=== PATIENT | male | born 1955 | race Two or more races ===

== ENCOUNTER 2021-11-17 11:58 | Inpatient (IN) | payer OTHER ==
[2021-11-17] MEDS ORDERED: MAGNESIUM HYDROX 2400MG/30ML ORAL SUSPENSION 30 ML CUP PO PRN (12:26)
[2021-11-17] MEDS ORDERED: IBUPROFEN 400 MG TABLET (FP) PO PRN (12:26)
[2021-11-17] MEDS ORDERED: guaiFENesin 200 MG/10 ML 10 ML UNIT-DOSE CUPS PO PRN (12:26)
[2021-11-17] MEDS ORDERED: MAGNESIUM CITRATE 300 ML BOTTLE PO PRN (12:26)
[2021-11-17] MEDS ORDERED: P-EPHED 60MG/TRIPROLIDI 2.5MG TABLET PO PRN (12:26)
[2021-11-17 12:35] VITALS: BMI 26.6
[2021-11-17 16:17] LABS: HEMATOCRIT 41.4 % (35.4-49); HEMOGLOBIN 13.6 GM/dL (11.7-16.9); MCH 27.9 pg (25.7-33.7); MCHC 32.9 g/dl (32.0-35.9); MEAN CELL VOLUME 84.7 fl (80-96); MEAN PLT VOLUME 8.1 fl (7.5-11.1); PLATELET COUNT 396 10^3/uL (134-434); RBC 4.89 M/mm3 (4.00-5.60); RDW 14.2 % (11.9-15.9); WHITE BLOOD COUNT 9.3 K/mm3 (4.0-10.0)
[2021-11-17 16:36] LABS: ALBUMIN 3.4 g/dl (3.4-5.0)
[2021-11-17] MEDS ORDERED: TUBERCULIN PPD 5 TU/0.1ML VIAL ID ONE ×2 (16:36→22:06)
[2021-11-17 16:38] LABS: BLOOD UREA NITROGEN 24.8 mg/dL (7-18)
[2021-11-17 16:39] LABS: CREATININE 1.3 mg/dL (0.55-1.3)
[2021-11-17 16:40] LABS: BILIRUBIN,TOTAL 0.2 mg/dL (0.2-1); TOT PROT 6.9 g/dl (6.4-8.2)
[2021-11-17] MEDS: PRENATAL VITAMINS W/ FOLIC ACID TABLET (FP) PO SCH (16:43)
[2021-11-17] MEDS: NICOTINE 7 MG/24 HOURS TOPICAL PATCH TD SCH (16:43)
[2021-11-17 17:03] LABS: SYPHILIS W/ RPR CONF NON-REACTIVE (NONREACTIVE)
[2021-11-17] MEDS: MAG HYDROX/AL HYDROX/SIMETH 30 ML UNIT-DOSE CUP PO PRN (18:43)
[2021-11-17] MEDS: THIAMINE HCL 100 MG TABLET (FP) PO SCH (21:27)
[2021-11-17] MEDS: MELATONIN 5 MG TABLETS PO SCH (21:27)
[2021-11-18] MEDS: PRENATAL VITAMINS W/ FOLIC ACID TABLET (FP) PO SCH (10:03)
[2021-11-18] MEDS: NICOTINE 7 MG/24 HOURS TOPICAL PATCH TD SCH (10:04)
[2021-11-18] MEDS: ACETAMINOPHEN 325 MG TABLET (FP) PO PRN ×2 (10:05→21:22)
[2021-11-18] MEDS ORDERED: PANTOPRAZOLE 40 MG TABLET PO ONE (12:16)
[2021-11-18] MEDS: MELATONIN 5 MG TABLETS PO SCH (21:22)
[2021-11-18] MEDS: THIAMINE HCL 100 MG TABLET (FP) PO SCH (21:22)
[2021-11-19] MEDS: ACETAMINOPHEN 325 MG TABLET (FP) PO PRN (06:20)
[2021-11-19] MEDS: NICOTINE 7 MG/24 HOURS TOPICAL PATCH TD SCH (09:56)
[2021-11-19] MEDS: FAMOTIDINE 20 MG TABLET PO SCH ×2 (09:56→21:05)
[2021-11-19] MEDS: PRENATAL VITAMINS W/ FOLIC ACID TABLET (FP) PO SCH (09:56)
[2021-11-19] MEDS ORDERED: NAPROXEN 500 MG TABLET PO SCH (10:00)
[2021-11-19] MEDS ORDERED: PANTOPRAZOLE 40 MG TABLET PO SCH (10:00)
[2021-11-19] MEDS: NAPROXEN 500 MG TABLET PO PRN ×2 (15:10→21:05)
[2021-11-19] MEDS: THIAMINE HCL 100 MG TABLET (FP) PO SCH (21:05)
[2021-11-19] MEDS: MELATONIN 5 MG TABLETS PO SCH (21:05)
[2021-11-19] MEDS: LIDOCAINE PATCH REMOVAL MC SCH (21:06)
[2021-11-19] MEDS: LIDOCAINE 5% TOPICAL PATCH TP SCH (22:27)
[2021-11-20] MEDS: ACETAMINOPHEN 325 MG TABLET (FP) PO PRN ×2 (06:34→14:27)
[2021-11-20] MEDS: PRENATAL VITAMINS W/ FOLIC ACID TABLET (FP) PO SCH (09:36)
[2021-11-20] MEDS: FAMOTIDINE 20 MG TABLET PO SCH ×2 (09:36→21:07)
[2021-11-20] MEDS: NICOTINE 7 MG/24 HOURS TOPICAL PATCH TD SCH (09:36)
[2021-11-20] MEDS: LIDOCAINE 5% TOPICAL PATCH TP SCH (09:36)
[2021-11-20] MEDS: NAPROXEN 500 MG TABLET PO PRN ×2 (09:37→21:07)
[2021-11-20 12:09] LABS: URINE APPEARANCE CLEAR; URINE BILIRUBIN NEGATIVE (NEGATIVE); URINE COLOR YELLOW; URINE GLUCOSE (UA) NEGATIVE (NEGATIVE); URINE KETONE NEGATIVE (NEGATIVE); URINE LEUK ESTERASE NEGATIVE (NEGATIVE); URINE NITRITE NEGATIVE (NEGATIVE); URINE PROTEIN NEGATIVE (NEGATIVE); URINE UROBILINOGEN 0.2 mg/dL (0.2-1.0)
[2021-11-20] MEDS: MELATONIN 5 MG TABLETS PO SCH (21:07)
[2021-11-20] MEDS: THIAMINE HCL 100 MG TABLET (FP) PO SCH (21:07)
[2021-11-20] MEDS: LIDOCAINE PATCH REMOVAL MC SCH (21:08)
[2021-11-21] MEDS: NAPROXEN 500 MG TABLET PO PRN ×2 (06:17→21:28)
[2021-11-21] MEDS: ACETAMINOPHEN 325 MG TABLET (FP) PO PRN (10:04)
[2021-11-21] MEDS: FAMOTIDINE 20 MG TABLET PO SCH ×2 (10:05→21:28)
[2021-11-21] MEDS: LIDOCAINE 5% TOPICAL PATCH TP SCH (10:06)
[2021-11-21] MEDS: PRENATAL VITAMINS W/ FOLIC ACID TABLET (FP) PO SCH (10:06)
[2021-11-21] MEDS: NICOTINE 7 MG/24 HOURS TOPICAL PATCH TD SCH (10:06)
[2021-11-21] MEDS: LIDOCAINE PATCH REMOVAL MC SCH (21:28)
[2021-11-21] MEDS: THIAMINE HCL 100 MG TABLET (FP) PO SCH (21:28)
[2021-11-21] MEDS: MELATONIN 5 MG TABLETS PO SCH (21:28)
[2021-11-21] MEDS: MAG HYDROX/AL HYDROX/SIMETH 30 ML UNIT-DOSE CUP PO PRN (22:35)
[2021-11-22] MEDS: ACETAMINOPHEN 325 MG TABLET (FP) PO PRN ×2 (06:33→17:51)
[2021-11-22] MEDS: MAG HYDROX/AL HYDROX/SIMETH 30 ML UNIT-DOSE CUP PO PRN ×2 (06:33→17:51)
[2021-11-22] MEDS: LIDOCAINE 5% TOPICAL PATCH TP SCH ×2 (10:01→10:30)
[2021-11-22] MEDS: PRENATAL VITAMINS W/ FOLIC ACID TABLET (FP) PO SCH (10:02)
[2021-11-22] MEDS: NICOTINE 7 MG/24 HOURS TOPICAL PATCH TD SCH (10:02)
[2021-11-22] MEDS: NICOTINE 10 MG CARTRIDGE (INHALER) IH PRN (10:04)
[2021-11-22] MEDS: NAPROXEN 500 MG TABLET PO PRN ×2 (10:04→21:14)
[2021-11-22] MEDS: FAMOTIDINE 20 MG TABLET PO SCH ×2 (10:30→21:14)
[2021-11-22] MEDS: LIDOCAINE PATCH REMOVAL MC SCH (21:14)
[2021-11-22] MEDS: THIAMINE HCL 100 MG TABLET (FP) PO SCH (21:14)
[2021-11-22] MEDS: MELATONIN 5 MG TABLETS PO SCH (21:14)
[2021-11-23] MEDS: NAPROXEN 500 MG TABLET PO PRN ×2 (06:54→21:08)
[2021-11-23] MEDS: LOPERAMIDE HCL 2 MG CAPSULE PO PRN ×2 (06:54→12:23)
[2021-11-23] MEDS: NICOTINE 7 MG/24 HOURS TOPICAL PATCH TD SCH (10:07)
[2021-11-23] MEDS: PRENATAL VITAMINS W/ FOLIC ACID TABLET (FP) PO SCH (10:07)
[2021-11-23] MEDS: FAMOTIDINE 20 MG TABLET PO SCH ×2 (10:07→21:06)
[2021-11-23] MEDS: LIDOCAINE 5% TOPICAL PATCH TP SCH ×2 (10:07→12:19)
[2021-11-23] MEDS: ACETAMINOPHEN 325 MG TABLET (FP) PO PRN (10:08)
[2021-11-23] MEDS: MAG HYDROX/AL HYDROX/SIMETH 30 ML UNIT-DOSE CUP PO PRN (10:11)
[2021-11-23] MEDS: METHYL SALICYLATE/MENTHOL OINT 30 GM TUBE TP SCH ×2 (12:39→21:07)
[2021-11-23] MEDS: THIAMINE HCL 100 MG TABLET (FP) PO SCH (21:07)
[2021-11-23] MEDS: MELATONIN 5 MG TABLETS PO SCH (21:07)
[2021-11-23] MEDS: LIDOCAINE PATCH REMOVAL MC SCH ×2 (21:07)
[2021-11-24] MEDS: NAPROXEN 500 MG TABLET PO PRN ×2 (06:43→17:13)
[2021-11-24] MEDS: hydrOXYzine PAMOATE 25 MG CAPSULE (FP) PO PRN ×2 (06:43→21:41)
[2021-11-24] MEDS: LIDOCAINE 5% TOPICAL PATCH TP SCH ×2 (09:42)
[2021-11-24] MEDS: METHYL SALICYLATE/MENTHOL OINT 30 GM TUBE TP SCH ×2 (09:42→21:44)
[2021-11-24] MEDS: NICOTINE 7 MG/24 HOURS TOPICAL PATCH TD SCH (09:43)
[2021-11-24] MEDS: FAMOTIDINE 20 MG TABLET PO SCH ×2 (09:43→21:41)
[2021-11-24] MEDS: PRENATAL VITAMINS W/ FOLIC ACID TABLET (FP) PO SCH (09:43)
[2021-11-24] MEDS: ACETAMINOPHEN 325 MG TABLET (FP) PO PRN ×2 (09:44→21:41)
[2021-11-24] MEDS: MAG HYDROX/AL HYDROX/SIMETH 30 ML UNIT-DOSE CUP PO PRN (17:12)
[2021-11-24] MEDS: LIDOCAINE PATCH REMOVAL MC SCH ×2 (21:42)
[2021-11-24] MEDS: MELATONIN 5 MG TABLETS PO SCH (21:42)
[2021-11-24] MEDS: THIAMINE HCL 100 MG TABLET (FP) PO SCH (21:45)
[2021-11-25] MEDS: hydrOXYzine PAMOATE 25 MG CAPSULE (FP) PO PRN (06:26)
[2021-11-25] MEDS: NAPROXEN 500 MG TABLET PO PRN ×2 (06:26→21:12)
[2021-11-25] MEDS: LIDOCAINE 5% TOPICAL PATCH TP SCH ×2 (10:09→10:10)
[2021-11-25] MEDS: METHYL SALICYLATE/MENTHOL OINT 30 GM TUBE TP SCH ×2 (10:09→21:13)
[2021-11-25] MEDS: FAMOTIDINE 20 MG TABLET PO SCH ×2 (10:10→21:12)
[2021-11-25] MEDS: PRENATAL VITAMINS W/ FOLIC ACID TABLET (FP) PO SCH (10:11)
[2021-11-25] MEDS: OMEPRAZOLE 40 MG PO SCH (10:11)
[2021-11-25] MEDS: NICOTINE 7 MG/24 HOURS TOPICAL PATCH TD SCH (10:12)
[2021-11-25] MEDS: ACETAMINOPHEN 325 MG TABLET (FP) PO PRN (10:12)
[2021-11-25] MEDS: THIAMINE HCL 100 MG TABLET (FP) PO SCH (21:12)
[2021-11-25] MEDS: MELATONIN 5 MG TABLETS PO SCH (21:12)
[2021-11-25] MEDS: LIDOCAINE PATCH REMOVAL MC SCH ×2 (21:13)
[2021-11-26] MEDS: hydrOXYzine PAMOATE 25 MG CAPSULE (FP) PO PRN ×2 (06:37→21:29)
[2021-11-26] MEDS: NAPROXEN 500 MG TABLET PO PRN ×2 (06:37→21:29)
[2021-11-26] MEDS: PRENATAL VITAMINS W/ FOLIC ACID TABLET (FP) PO SCH (09:50)
[2021-11-26] MEDS: OMEPRAZOLE 40 MG PO SCH (09:50)
[2021-11-26] MEDS: FAMOTIDINE 20 MG TABLET PO SCH ×2 (09:50→21:29)
[2021-11-26] MEDS: NICOTINE 10 MG CARTRIDGE (INHALER) IH PRN (09:52)
[2021-11-26] MEDS: LIDOCAINE 5% TOPICAL PATCH TP SCH ×2 (09:53→09:54)
[2021-11-26] MEDS: ACETAMINOPHEN 325 MG TABLET (FP) PO PRN ×2 (09:53→14:17)
[2021-11-26] MEDS: NICOTINE 7 MG/24 HOURS TOPICAL PATCH TD SCH (09:54)
[2021-11-26] MEDS: METHYL SALICYLATE/MENTHOL OINT 30 GM TUBE TP SCH ×2 (09:54→21:30)
[2021-11-26] MEDS: MELATONIN 5 MG TABLETS PO SCH (21:29)
[2021-11-26] MEDS: THIAMINE HCL 100 MG TABLET (FP) PO SCH (21:29)
[2021-11-26] MEDS: LIDOCAINE PATCH REMOVAL MC SCH ×2 (21:30)
[2021-11-27] MEDS: ACETAMINOPHEN 325 MG TABLET (FP) PO PRN (06:31)
[2021-11-27] MEDS: LIDOCAINE 5% TOPICAL PATCH TP SCH ×2 (10:10)
[2021-11-27] MEDS: FAMOTIDINE 20 MG TABLET PO SCH ×2 (10:11→21:48)
[2021-11-27] MEDS: NICOTINE 7 MG/24 HOURS TOPICAL PATCH TD SCH (10:11)
[2021-11-27] MEDS: PRENATAL VITAMINS W/ FOLIC ACID TABLET (FP) PO SCH (10:11)
[2021-11-27] MEDS: OMEPRAZOLE 40 MG PO SCH (10:11)
[2021-11-27] MEDS: METHYL SALICYLATE/MENTHOL OINT 30 GM TUBE TP SCH ×2 (10:16→21:49)
[2021-11-27] MEDS: NAPROXEN 500 MG TABLET PO PRN ×2 (10:16→21:47)
[2021-11-27] MEDS: amLODIPine BESYLATE 5 MG TABLET (FP) PO SCH (11:19)
[2021-11-27] MEDS: MELATONIN 5 MG TABLETS PO SCH (21:48)
[2021-11-27] MEDS: LIDOCAINE PATCH REMOVAL MC SCH ×2 (21:48)
[2021-11-27] MEDS: hydrOXYzine PAMOATE 25 MG CAPSULE (FP) PO PRN (21:48)
[2021-11-27] MEDS: THIAMINE HCL 100 MG TABLET (FP) PO SCH (21:48)
[2021-11-28] MEDS: ACETAMINOPHEN 325 MG TABLET (FP) PO PRN (07:55)
[2021-11-28] MEDS: OMEPRAZOLE 40 MG PO SCH (11:01)
[2021-11-28] MEDS: LIDOCAINE 5% TOPICAL PATCH TP SCH ×2 (11:02→11:03)
[2021-11-28] MEDS: amLODIPine BESYLATE 5 MG TABLET (FP) PO SCH (11:02)
[2021-11-28] MEDS: PRENATAL VITAMINS W/ FOLIC ACID TABLET (FP) PO SCH (11:02)
[2021-11-28] MEDS: NICOTINE 7 MG/24 HOURS TOPICAL PATCH TD SCH (11:02)
[2021-11-28] MEDS: METHYL SALICYLATE/MENTHOL OINT 30 GM TUBE TP SCH ×2 (11:02→21:59)
[2021-11-28] MEDS: FAMOTIDINE 20 MG TABLET PO SCH ×2 (11:02→21:58)
[2021-11-28] MEDS: NAPROXEN 500 MG TABLET PO PRN ×2 (11:06→21:58)
[2021-11-28] MEDS: THIAMINE HCL 100 MG TABLET (FP) PO SCH (21:58)
[2021-11-28] MEDS: MELATONIN 5 MG TABLETS PO SCH (21:58)
[2021-11-28] MEDS: LIDOCAINE PATCH REMOVAL MC SCH ×2 (21:59→22:00)
[2021-11-29] MEDS: ACETAMINOPHEN 325 MG TABLET (FP) PO PRN ×3 (06:44→21:34)
[2021-11-29 08:11] VITALS: TEMP 97
[2021-11-29] MEDS: METHYL SALICYLATE/MENTHOL OINT 30 GM TUBE TP SCH ×2 (09:39→21:34)
[2021-11-29] MEDS: LIDOCAINE 5% TOPICAL PATCH TP SCH ×2 (09:40)
[2021-11-29] MEDS: NICOTINE 7 MG/24 HOURS TOPICAL PATCH TD SCH (09:40)
[2021-11-29] MEDS: OMEPRAZOLE 40 MG PO SCH (09:40)
[2021-11-29] MEDS: PRENATAL VITAMINS W/ FOLIC ACID TABLET (FP) PO SCH (09:40)
[2021-11-29] MEDS: FAMOTIDINE 20 MG TABLET PO SCH ×2 (09:41→21:34)
[2021-11-29] MEDS: NAPROXEN 500 MG TABLET PO PRN ×2 (09:41→18:39)
[2021-11-29] MEDS: amLODIPine BESYLATE 5 MG TABLET (FP) PO SCH (09:41)
[2021-11-29] MEDS: THIAMINE HCL 100 MG TABLET (FP) PO SCH (21:33)
[2021-11-29] MEDS: MELATONIN 5 MG TABLETS PO SCH (21:33)
[2021-11-29] MEDS: LIDOCAINE PATCH REMOVAL MC SCH ×2 (21:34)
[2021-11-30] MEDS: NAPROXEN 500 MG TABLET PO PRN (08:23)
[2021-11-30] MEDS: amLODIPine BESYLATE 5 MG TABLET (FP) PO SCH (10:11)
[2021-11-30] MEDS: LIDOCAINE 5% TOPICAL PATCH TP SCH ×2 (10:11)
[2021-11-30] MEDS: OMEPRAZOLE 40 MG PO SCH (10:12)
[2021-11-30] MEDS: PRENATAL VITAMINS W/ FOLIC ACID TABLET (FP) PO SCH (10:12)
[2021-11-30] MEDS: FAMOTIDINE 20 MG TABLET PO SCH (10:12)
[2021-11-30] MEDS: NICOTINE 7 MG/24 HOURS TOPICAL PATCH TD SCH (10:15)
[2021-11-30] MEDS: METHYL SALICYLATE/MENTHOL OINT 30 GM TUBE TP SCH (10:15)
[2021-11-30 10:19] VITALS: BP 118/81; PULSE 87; RESP 16
== END 2021-11-30 11:55 | disposition home or self-care (01) | DRG 895 ==
LOC: YASAS 11:58 → Y3E 15:57
PROVIDERS: ADMIT Allergy & Immunology; ATTEND Family Medicine
PROC: HZ42ZZZ Group Counseling for Substance Abuse Treatment, Cognitive-Behavioral (ICD-10-PCS; principal; 2021-11-17)
DX: F10.20 Alcohol dependence, uncomplicated (principal); F14.20 Cocaine dependence, uncomplicated; F17.210 Nicotine dependence, cigarettes, uncomplicated; F41.9 Anxiety disorder, unspecified; G47.00 Insomnia, unspecified; K21.9 Gastro-esophageal reflux disease without esophagitis; M17.0 Bilateral primary osteoarthritis of knee; R03.0 Elevated blood-pressure reading, without diagnosis of hypertension; R94.31 Abnormal electrocardiogram [ECG] [EKG]; Z28.310 Unvaccinated for COVID-19; Z99.89 Dependence on other enabling machines and devices
CPT/HCPCS: 36415; 73030-TC-LT-FY; 80053; 81003; 85027; 86780; 86803; 93005; 93010; C9803-CS; U0003; U0005

== ENCOUNTER 2021-11-18 00:05 | Emergency (ER) | payer OTHER ==
[2021-11-18 00:27] VITALS: BP 119/73; PULSE 71; RESP 20; TEMP 98.4; BMI 24.2
== END 2021-11-18 03:18 ==
LOC: JER 00:05
DX: I45.10 Unspecified right bundle-branch block (principal)
CPT/HCPCS: 93005; 93010; 99283-25

== ENCOUNTER 2022-01-18 12:39 | Inpatient (IN) | payer OTHER ==
[2022-01-18 15:41] VITALS: BMI 18.3
[2022-01-18] MEDS ORDERED: NICOTINE 10 MG CARTRIDGE (INHALER) IH PRN (16:36)
[2022-01-18] MEDS ORDERED: MAGNESIUM CITRATE 300 ML BOTTLE PO PRN (16:36)
[2022-01-18] MEDS ORDERED: hydrOXYzine PAMOATE 25 MG CAPSULE (FP) PO PRN (16:36)
[2022-01-18] MEDS ORDERED: LOPERAMIDE HCL 2 MG CAPSULE PO PRN (16:36)
[2022-01-18] MEDS ORDERED: MAG HYDROX/AL HYDROX/SIMETH 30 ML UNIT-DOSE CUP PO PRN (16:36)
[2022-01-18] MEDS ORDERED: MAGNESIUM HYDROX 2400MG/30ML ORAL SUSPENSION 30 ML CUP PO PRN (16:36)
[2022-01-18] MEDS ORDERED: IBUPROFEN 400 MG TABLET (FP) PO PRN (16:36)
[2022-01-18] MEDS ORDERED: P-EPHED 60MG/TRIPROLIDI 2.5MG TABLET PO PRN (16:36)
[2022-01-18] MEDS ORDERED: guaiFENesin 200 MG/10 ML 10 ML UNIT-DOSE CUPS PO PRN (16:36)
[2022-01-18] MEDS: ACETAMINOPHEN 325 MG TABLET (FP) PO PRN (17:11)
[2022-01-18] MEDS: THIAMINE HCL 100 MG TABLET (FP) PO SCH (21:46)
[2022-01-18] MEDS: MELATONIN 5 MG TABLETS PO SCH (21:46)
[2022-01-19] MEDS: ACETAMINOPHEN 325 MG TABLET (FP) PO PRN ×2 (06:40→14:23)
[2022-01-19] MEDS: PRENATAL VITAMINS W/ FOLIC ACID TABLET (FP) PO SCH (10:09)
[2022-01-19] MEDS: NICOTINE 7 MG/24 HOURS TOPICAL PATCH TD SCH (10:09)
[2022-01-19] MEDS ORDERED: BACLOFEN 10 MG TABLET (FP) PO PRN (13:04)
[2022-01-19] MEDS: amLODIPine BESYLATE 5 MG TABLET (FP) PO SCH (14:22)
[2022-01-19 15:06] LABS: HEMATOCRIT 44.6 % (35.4-49); HEMOGLOBIN 14.2 GM/dL (11.7-16.9); MCH 27.8 pg (25.7-33.7); MCHC 31.8 g/dl (32.0-35.9); MEAN CELL VOLUME 87.6 fl (80-96); MEAN PLT VOLUME 8.4 fl (7.5-11.1); PLATELET COUNT 443 10^3/uL (134-434); RDW 16.6 % (11.9-15.9); WHITE BLOOD COUNT 7.9 K/mm3 (4.0-10.0)
[2022-01-19 15:10] LABS: ALBUMIN 3.3 g/dl (3.4-5.0); BLOOD UREA NITROGEN 17.8 mg/dL (7-18); CALCIUM 9.5 mg/dL (8.5-10.1)
[2022-01-19 15:13] LABS: CREATININE 0.9 mg/dL (0.55-1.3)
[2022-01-19 15:15] LABS: BILIRUBIN,TOTAL 0.3 mg/dL (0.2-1); TOT PROT 6.8 g/dl (6.4-8.2)
[2022-01-19 16:41] LABS: URINE APPEARANCE CLEAR; URINE BILIRUBIN NEGATIVE (NEGATIVE); URINE COLOR YELLOW; URINE GLUCOSE (UA) NEGATIVE (NEGATIVE); URINE KETONE TRACE (NEGATIVE); URINE LEUK ESTERASE NEGATIVE (NEGATIVE); URINE NITRITE NEGATIVE (NEGATIVE); URINE PROTEIN NEGATIVE (NEGATIVE)
[2022-01-19] MEDS: THIAMINE HCL 100 MG TABLET (FP) PO SCH (21:53)
[2022-01-19] MEDS: NAPROXEN 500 MG TABLET PO SCH (21:53)
[2022-01-19] MEDS: MELATONIN 5 MG TABLETS PO SCH (21:53)
[2022-01-20] MEDS: ACETAMINOPHEN 325 MG TABLET (FP) PO PRN (07:15)
[2022-01-20] MEDS: NAPROXEN 500 MG TABLET PO SCH ×2 (09:00→21:57)
[2022-01-20] MEDS: PRENATAL VITAMINS W/ FOLIC ACID TABLET (FP) PO SCH (09:01)
[2022-01-20] MEDS: amLODIPine BESYLATE 5 MG TABLET (FP) PO SCH (09:01)
[2022-01-20] MEDS: NICOTINE 7 MG/24 HOURS TOPICAL PATCH TD SCH (09:01)
[2022-01-20] MEDS: PANTOPRAZOLE 40 MG TABLET PO SCH (09:01)
[2022-01-20] MEDS ORDERED: ONDANSETRON *ODT* 4 MG TABLET SL PRN (11:31)
[2022-01-20] MEDS: METHOCARBAMOL 500 MG TABLET PO SCH ×2 (12:06→21:56)
[2022-01-20] MEDS ORDERED: cloNIDine HCL 0.1 MG TABLET PO PRN (16:19)
[2022-01-20] MEDS ORDERED: TRIMETHOBENZAMIDE HCL 200MG/2ML INJ IM ONE (20:54)
[2022-01-20] MEDS: MELATONIN 5 MG TABLETS PO SCH (21:57)
[2022-01-20] MEDS: THIAMINE HCL 100 MG TABLET (FP) PO SCH (21:57)
[2022-01-21] MEDS: ACETAMINOPHEN 325 MG TABLET (FP) PO PRN (06:55)
[2022-01-21 08:09] VITALS: PULSE 81
[2022-01-21 09:23] VITALS: BP 95/66; RESP 15; TEMP 98
[2022-01-21] MEDS: NAPROXEN 500 MG TABLET PO SCH (09:46)
[2022-01-21] MEDS: PRENATAL VITAMINS W/ FOLIC ACID TABLET (FP) PO SCH (09:46)
[2022-01-21] MEDS: PANTOPRAZOLE 40 MG TABLET PO SCH (09:46)
[2022-01-21] MEDS: METHOCARBAMOL 500 MG TABLET PO SCH (09:46)
[2022-01-21] MEDS: NICOTINE 7 MG/24 HOURS TOPICAL PATCH TD SCH (09:47)
[2022-01-21] MEDS: amLODIPine BESYLATE 5 MG TABLET (FP) PO SCH (09:47)
== END 2022-01-21 17:00 | disposition short-term general hospital (02) | DRG 895 ==
LOC: YASAS 12:39 → Y3E 18:16
PROVIDERS: ADMIT Allergy & Immunology; ATTEND Psychiatry & Neurology Pain Medicine
PROC: HZ42ZZZ Group Counseling for Substance Abuse Treatment, Cognitive-Behavioral (ICD-10-PCS; principal; 2022-01-18)
DX: F14.20 Cocaine dependence, uncomplicated (principal); Z68.1 Body mass index [BMI] 19.9 or less, adult; F17.210 Nicotine dependence, cigarettes, uncomplicated; F41.9 Anxiety disorder, unspecified; G47.00 Insomnia, unspecified; K21.9 Gastro-esophageal reflux disease without esophagitis; M17.0 Bilateral primary osteoarthritis of knee; R11.11 Vomiting without nausea; R94.31 Abnormal electrocardiogram [ECG] [EKG]; R63.4 Abnormal weight loss
CPT/HCPCS: 36415; 80053; 81003; 85027; 86780; 93005; 93010; C9803-CS; J0475; Q0162; U0003; U0005

== ENCOUNTER 2022-01-21 10:54 | Emergency (ER) | payer OTHER ==
[2022-01-21 11:16] VITALS: BP 111/69; PULSE 85; RESP 18; TEMP 99.2; BMI 19.0
[2022-01-21] MEDS ORDERED: MAG HYDROX/AL HYDROX/SIMETH 30 ML UNIT-DOSE CUP PO ONE (12:33)
[2022-01-21 12:59] LABS: BASO % 0.8 % (0-2.0); EOS % 2.2 % (0-4.5); HEMATOCRIT 41.6 % (35.4-49); HEMOGLOBIN 13.5 GM/dL (11.7-16.9); LYMPH % 32.6 % (8-40); MCH 27.8 pg (25.7-33.7); MCHC 32.5 g/dl (32.0-35.9); MEAN CELL VOLUME 85.6 fl (80-96); MEAN PLT VOLUME 7.3 fl (7.5-11.1); MONO % 13.7 % (3.8-10.2); NEUT % 50.7 % (42.8-82.8); PLATELET COUNT 456 10^3/uL (134-434); RBC 4.86 M/mm3 (4.00-5.60); RDW 15.9 % (11.9-15.9); WHITE BLOOD COUNT 11.3 K/mm3 (4.0-10.0)
[2022-01-21] MEDS ORDERED: MAG HYDROX/AL HYDROX/SIMETH 30 ML UNIT-DOSE CUP ONE (13:10)
[2022-01-21 13:26] LABS: ALBUMIN 3.6 g/dl (3.4-5.0); CALCIUM 9.3 mg/dL (8.5-10.1)
[2022-01-21 13:30] LABS: CREATININE 1.3 mg/dL (0.55-1.3)
[2022-01-21 13:32] LABS: BILIRUBIN,TOTAL 0.5 mg/dL (0.2-1); TOT PROT 6.7 g/dl (6.4-8.2)
== END 2022-01-21 18:37 | disposition left against medical advice (07) ==
LOC: JER 10:54
DX: R07.89 Other chest pain (principal); R11.2 Nausea with vomiting, unspecified
CPT/HCPCS: 36415; 71045-TC-FY; 71260-TC; 74177-TC; 80053; 84484; 85025; 93005; 93010; 99285-25; Q9967

== ENCOUNTER 2022-05-31 11:59 | Inpatient (IN) | payer OTHER ==
[2022-05-31 12:40] VITALS: BMI 17.4
[2022-05-31] MEDS ORDERED: guaiFENesin 200 MG/10 ML 10 ML UNIT-DOSE CUPS PO PRN (13:08)
[2022-05-31] MEDS ORDERED: hydrOXYzine PAMOATE 25 MG CAPSULE (FP) PO PRN (13:08)
[2022-05-31] MEDS ORDERED: LOPERAMIDE HCL 2 MG CAPSULE PO PRN (13:08)
[2022-05-31] MEDS ORDERED: P-EPHED 60MG/TRIPROLIDI 2.5MG TABLET PO PRN (13:08)
[2022-05-31] MEDS ORDERED: POLYETHYLENE GLYCOL (HEALTHYLAX) 3350 17 GM PACKET PO PRN (13:08)
[2022-05-31] MEDS ORDERED: MAG HYDROX/AL HYDROX/SIMETH 30 ML UNIT-DOSE CUP PO PRN (13:08)
[2022-05-31] MEDS ORDERED: BENZOCAINE/MENTHOL (CHLORASEPTIC ) LOZENGE MM PRN (13:08)
[2022-05-31] MEDS ORDERED: MAGNESIUM HYDROX 2400MG/30ML ORAL SUSPENSION 30 ML CUP PO PRN (13:08)
[2022-05-31] MEDS: NAPROXEN 500 MG TABLET PO SCH ×2 (16:15→21:20)
[2022-05-31] MEDS: PANTOPRAZOLE 40 MG TABLET PO SCH (16:54)
[2022-05-31] MEDS: MELATONIN 5 MG TABLETS PO PRN (21:20)
[2022-05-31] MEDS: THIAMINE HCL 100 MG TABLET (FP) PO SCH (21:20)
[2022-05-31 23:51] LABS: URINE APPEARANCE CLEAR; URINE BILIRUBIN NEGATIVE (NEGATIVE); URINE COLOR YELLOW; URINE GLUCOSE (UA) NEGATIVE (NEGATIVE); URINE KETONE TRACE (NEGATIVE); URINE LEUK ESTERASE NEGATIVE (NEGATIVE); URINE NITRITE NEGATIVE (NEGATIVE); URINE PROTEIN TRACE (NEGATIVE); URINE UROBILINOGEN 0.2 mg/dL (0.2-1.0)
[2022-06-01] MEDS: ACETAMINOPHEN 325 MG TABLET (FP) PO PRN (06:23)
[2022-06-01] MEDS: NAPROXEN 500 MG TABLET PO SCH ×2 (09:35→21:05)
[2022-06-01] MEDS: PRENATAL VITAMINS W/ FOLIC ACID TABLET (FP) PO SCH (09:35)
[2022-06-01] MEDS: PANTOPRAZOLE 40 MG TABLET PO SCH (09:35)
[2022-06-01 12:33] LABS: HEMATOCRIT 43.2 % (35.4-49); MCH 27.7 pg (25.7-33.7); MCHC 32.3 g/dl (32.0-35.9); MEAN CELL VOLUME 85.8 fl (80-96); MEAN PLT VOLUME 7.7 fl (7.5-11.1); PLATELET COUNT 428 10^3/uL (134-434); RBC 5.03 M/mm3 (4.00-5.60); RDW 15.7 % (11.9-15.9); WHITE BLOOD COUNT 9.1 K/mm3 (4.0-10.0)
[2022-06-01 12:49] LABS: ALBUMIN 3.3 g/dl (3.4-5.0); BLOOD UREA NITROGEN 20.6 mg/dL (7-18); CALCIUM 8.9 mg/dL (8.5-10.1)
[2022-06-01 12:53] LABS: TOT PROT 6.4 g/dl (6.4-8.2)
[2022-06-01 12:55] LABS: BILIRUBIN,TOTAL 0.3 mg/dL (0.2-1)
[2022-06-01] MEDS: THIAMINE HCL 100 MG TABLET (FP) PO SCH (21:04)
[2022-06-01] MEDS: MELATONIN 5 MG TABLETS PO PRN (21:05)
[2022-06-02] MEDS: ACETAMINOPHEN 325 MG TABLET (FP) PO PRN (06:41)
[2022-06-02] MEDS: NAPROXEN 500 MG TABLET PO SCH ×2 (10:09→21:14)
[2022-06-02] MEDS: PANTOPRAZOLE 40 MG TABLET PO SCH (10:10)
[2022-06-02] MEDS: PRENATAL VITAMINS W/ FOLIC ACID TABLET (FP) PO SCH (10:10)
[2022-06-02] MEDS: THIAMINE HCL 100 MG TABLET (FP) PO SCH (21:14)
[2022-06-02] MEDS: MELATONIN 5 MG TABLETS PO PRN (21:14)
[2022-06-03] MEDS: ACETAMINOPHEN 325 MG TABLET (FP) PO PRN (06:28)
[2022-06-03 06:39] VITALS: BP 120/74; PULSE 64; RESP 18; TEMP 98.3
== END 2022-06-03 08:54 | disposition home or self-care (01) | DRG 895 ==
LOC: YASAS 11:59 → Y3E 16:20
PROVIDERS: ADMIT Allergy & Immunology; ATTEND Allergy & Immunology
PROC: HZ42ZZZ Group Counseling for Substance Abuse Treatment, Cognitive-Behavioral (ICD-10-PCS; principal; 2022-05-31)
DX: F14.20 Cocaine dependence, uncomplicated (principal); F17.210 Nicotine dependence, cigarettes, uncomplicated; F41.9 Anxiety disorder, unspecified; G47.00 Insomnia, unspecified; K21.9 Gastro-esophageal reflux disease without esophagitis; M15.9 Polyosteoarthritis, unspecified; Z99.89 Dependence on other enabling machines and devices
CPT/HCPCS: 36415; 80053; 81003; 82962; 85027; 86780; 87811; C9803-CS; U0003; U0005

== ENCOUNTER 2022-06-23 11:34 | Inpatient (IN) | payer OTHER ==
[2022-06-23] MEDS ORDERED: BENZOCAINE/MENTHOL (CHLORASEPTIC ) LOZENGE MM PRN (14:47)
[2022-06-23] MEDS ORDERED: P-EPHED 60MG/TRIPROLIDI 2.5MG TABLET PO PRN (14:47)
[2022-06-23] MEDS ORDERED: guaiFENesin 200 MG/10 ML 10 ML UNIT-DOSE CUPS PO PRN (14:47)
[2022-06-23] MEDS ORDERED: MAGNESIUM HYDROX 2400MG/30ML ORAL SUSPENSION 30 ML CUP PO PRN (14:47)
[2022-06-23] MEDS ORDERED: NICOTINE 10 MG CARTRIDGE (INHALER) IH PRN (14:47)
[2022-06-23] MEDS ORDERED: IBUPROFEN 400 MG TABLET (FP) PO PRN (14:47)
[2022-06-23] MEDS ORDERED: POLYETHYLENE GLYCOL (HEALTHYLAX) 3350 17 GM PACKET PO PRN (14:47)
[2022-06-23] MEDS ORDERED: hydrOXYzine PAMOATE 25 MG CAPSULE (FP) PO PRN (14:47)
[2022-06-23] MEDS: PRENATAL VITAMINS W/ FOLIC ACID TABLET (FP) PO SCH (16:27)
[2022-06-23] MEDS: MAG HYDROX/AL HYDROX/SIMETH 30 ML UNIT-DOSE CUP PO PRN (16:28)
[2022-06-23] MEDS: ACETAMINOPHEN 325 MG TABLET (FP) PO PRN (16:29)
[2022-06-23 16:34] VITALS: BMI 17.4
[2022-06-23] MEDS: MELATONIN 5 MG TABLETS PO SCH (21:40)
[2022-06-23] MEDS: THIAMINE HCL 100 MG TABLET (FP) PO SCH (21:40)
[2022-06-23] MEDS: NAPROXEN 500 MG TABLET PO SCH (21:40)
[2022-06-24] MEDS: ACETAMINOPHEN 325 MG TABLET (FP) PO PRN (06:53)
[2022-06-24] MEDS: NAPROXEN 500 MG TABLET PO SCH ×2 (10:27→22:05)
[2022-06-24] MEDS: amLODIPine BESYLATE 5 MG TABLET (FP) PO SCH (10:27)
[2022-06-24] MEDS: PANTOPRAZOLE 40 MG TABLET PO SCH (10:27)
[2022-06-24] MEDS: LOPERAMIDE HCL 2 MG CAPSULE PO PRN ×3 (10:28→17:20)
[2022-06-24] MEDS: PRENATAL VITAMINS W/ FOLIC ACID TABLET (FP) PO SCH (10:28)
[2022-06-24 12:15] LABS: HEMATOCRIT 44.1 % (35.4-49); HEMOGLOBIN 14.5 GM/dL (11.7-16.9); MCH 28.3 pg (25.7-33.7); MCHC 32.8 g/dl (32.0-35.9); MEAN CELL VOLUME 86.4 fl (80-96); MEAN PLT VOLUME 7.9 fl (7.5-11.1); PLATELET COUNT 457 10^3/uL (134-434); RDW 16.1 % (11.9-15.9); WHITE BLOOD COUNT 10.7 K/mm3 (4.0-10.0)
[2022-06-24 12:17] LABS: CALCIUM 9.3 mg/dL (8.5-10.1)
[2022-06-24 12:18] LABS: ALBUMIN 3.6 g/dl (3.4-5.0); BLOOD UREA NITROGEN 23.7 mg/dL (7-18)
[2022-06-24 12:22] LABS: BILIRUBIN,TOTAL 0.3 mg/dL (0.2-1); TOT PROT 7.2 g/dl (6.4-8.2)
[2022-06-24 12:43] LABS: SYPHILIS W/ RPR CONF NON-REACTIVE (NONREACTIVE)
[2022-06-24] MEDS: THIAMINE HCL 100 MG TABLET (FP) PO SCH (22:05)
[2022-06-24] MEDS: MELATONIN 5 MG TABLETS PO SCH (22:05)
[2022-06-24] MEDS ORDERED: TRIMETHOBENZAMIDE HCL 200MG/2ML INJ IM ONE (22:56)
[2022-06-25] MEDS: ACETAMINOPHEN 325 MG TABLET (FP) PO PRN (06:42)
[2022-06-25] MEDS: PANTOPRAZOLE 40 MG TABLET PO SCH (09:43)
[2022-06-25] MEDS: NAPROXEN 500 MG TABLET PO SCH ×2 (09:43→21:57)
[2022-06-25] MEDS: amLODIPine BESYLATE 5 MG TABLET (FP) PO SCH (09:43)
[2022-06-25] MEDS: PRENATAL VITAMINS W/ FOLIC ACID TABLET (FP) PO SCH (09:43)
[2022-06-25] MEDS: MELATONIN 5 MG TABLETS PO SCH (21:57)
[2022-06-25] MEDS: THIAMINE HCL 100 MG TABLET (FP) PO SCH (21:57)
[2022-06-25] MEDS: MAG HYDROX/AL HYDROX/SIMETH 30 ML UNIT-DOSE CUP PO PRN (21:58)
[2022-06-26] MEDS: MAG HYDROX/AL HYDROX/SIMETH 30 ML UNIT-DOSE CUP PO PRN (06:51)
[2022-06-26] MEDS: ACETAMINOPHEN 325 MG TABLET (FP) PO PRN (06:51)
[2022-06-26] MEDS: PANTOPRAZOLE 40 MG TABLET PO SCH (09:52)
[2022-06-26] MEDS: PRENATAL VITAMINS W/ FOLIC ACID TABLET (FP) PO SCH (09:52)
[2022-06-26] MEDS: amLODIPine BESYLATE 5 MG TABLET (FP) PO SCH (09:52)
[2022-06-26] MEDS: NAPROXEN 500 MG TABLET PO SCH (09:52)
[2022-06-26 09:53] VITALS: BP 115/81; PULSE 77; RESP 18; TEMP 97.3
== END 2022-06-26 10:34 | disposition left against medical advice (07) | DRG 894 ==
LOC: YASAS 11:34 → Y3E 15:25
PROVIDERS: ADMIT Allergy & Immunology; ATTEND Allergy & Immunology
PROC: HZ42ZZZ Group Counseling for Substance Abuse Treatment, Cognitive-Behavioral (ICD-10-PCS; principal; 2022-06-23)
DX: F10.20 Alcohol dependence, uncomplicated (principal); F14.20 Cocaine dependence, uncomplicated; F17.210 Nicotine dependence, cigarettes, uncomplicated; F41.9 Anxiety disorder, unspecified; G47.00 Insomnia, unspecified; K21.9 Gastro-esophageal reflux disease without esophagitis; M17.0 Bilateral primary osteoarthritis of knee; M15.9 Polyosteoarthritis, unspecified; R11.2 Nausea with vomiting, unspecified; Z99.89 Dependence on other enabling machines and devices
CPT/HCPCS: 36415; 80053; 82962; 85027; 86780; 86803; C9803-CS; U0003; U0005

== ENCOUNTER 2022-09-27 11:26 | Inpatient (IN) | payer OTHER ==
[2022-09-27 11:48] VITALS: BMI 16.9
[2022-09-27] MEDS ORDERED: BENZONATATE 200 MG CAPSULE PO PRN (13:28)
[2022-09-27] MEDS ORDERED: IBUPROFEN 400 MG TABLET (FP) PO PRN (13:28)
[2022-09-27] MEDS ORDERED: MAGNESIUM HYDROX 2400MG/30ML ORAL SUSPENSION 30 ML CUP PO PRN (13:28)
[2022-09-27] MEDS ORDERED: NALOXONE HCL 0.4 MG/ML VIAL IM PRN (13:28)
[2022-09-27] MEDS ORDERED: LOPERAMIDE HCL 2 MG CAPSULE PO PRN (13:28)
[2022-09-27] MEDS ORDERED: NICOTINE POLACRILEX 4 MG GUM BUC PRN (13:28)
[2022-09-27] MEDS ORDERED: AMMONIUM LACTATE 12% LOTION 225 GM BOTTLE TP PRN (13:28)
[2022-09-27] MEDS ORDERED: guaiFENesin 600 MG TABLET.ER (FP) PO PRN (13:28)
[2022-09-27] MEDS ORDERED: POLYETHYLENE GLYCOL (HEALTHYLAX) 3350 17 GM PACKET PO PRN (13:28)
[2022-09-27] MEDS ORDERED: IBUPROFEN 600 MG TABLET (FP) PO PRN (13:28)
[2022-09-27] MEDS ORDERED: MAG HYDROX/AL HYDROX/SIMETH 30 ML UNIT-DOSE CUP PO PRN (13:28)
[2022-09-27] MEDS ORDERED: BENZOCAINE/MENTHOL (CHLORASEPTIC ) LOZENGE MM PRN (13:28)
[2022-09-27] MEDS ORDERED: NICOTINE 10 MG CARTRIDGE (INHALER) IH PRN (13:28)
[2022-09-27] MEDS ORDERED: NALOXONE HCL (KLOXXADO) 8 MG SPRAY NS PRN (13:28)
[2022-09-27] MEDS ORDERED: COLLOIDAL OATMEAL 1 BAR EACH TP PRN (13:28)
[2022-09-27] MEDS ORDERED: hydrOXYzine PAMOATE 25 MG CAPSULE (FP) PO PRN (13:28)
[2022-09-27] MEDS: amLODIPine BESYLATE 5 MG TABLET (FP) PO SCH (16:49)
[2022-09-27] MEDS: PRENATAL VITAMINS W/ FOLIC ACID TABLET (FP) PO SCH (16:49)
[2022-09-27] MEDS: PANTOPRAZOLE 40 MG TABLET PO SCH (16:49)
[2022-09-27 18:33] LABS: HEMATOCRIT 40.2 % (35.4-49); HEMOGLOBIN 13.6 GM/dL (11.7-16.9); MCH 28.5 pg (25.7-33.7); MCHC 33.8 g/dl (32.0-35.9); MEAN CELL VOLUME 84.5 fl (80-96); MEAN PLT VOLUME 7.3 fl (7.5-11.1); PLATELET COUNT 505 10^3/uL (134-434); RBC 4.76 M/mm3 (4.00-5.60); RDW 14.9 % (11.9-15.9); WHITE BLOOD COUNT 7.2 K/mm3 (4.0-10.0)
[2022-09-27 18:38] LABS: ALBUMIN 3.4 g/dl (3.4-5.0); BILIRUBIN,TOTAL 0.3 mg/dL (0.2-1); BLOOD UREA NITROGEN 18.2 mg/dL (7-18); CALCIUM 9.2 mg/dL (8.5-10.1); CREATININE 0.8 mg/dL (0.55-1.3); POTASSIUM 4.3 mmol/L (3.5-5.1); TOT PROT 6.9 g/dl (6.4-8.2)
[2022-09-27 18:41] LABS: SYPHILIS W/ RPR CONF NON-REACTIVE (NONREACTIVE)
[2022-09-27] MEDS: ACETAMINOPHEN 325 MG TABLET (FP) PO PRN (18:51)
[2022-09-27] MEDS: THIAMINE HCL 100 MG TABLET (FP) PO SCH (21:27)
[2022-09-27] MEDS: MELATONIN 5 MG TABLETS PO SCH (21:27)
[2022-09-27] MEDS ORDERED: METHOCARBAMOL 500 MG TABLET PO SCH (22:00)
[2022-09-27] MEDS ORDERED: NAPROXEN 500 MG TABLET PO SCH (22:00)
[2022-09-28] MEDS: ACETAMINOPHEN 325 MG TABLET (FP) PO PRN (06:18)
[2022-09-28] MEDS ORDERED: NAPROXEN 500 MG TABLET PO PRN (08:29)
[2022-09-28] MEDS: PANTOPRAZOLE 40 MG TABLET PO SCH (09:36)
[2022-09-28] MEDS: amLODIPine BESYLATE 5 MG TABLET (FP) PO SCH (09:36)
[2022-09-28] MEDS: PRENATAL VITAMINS W/ FOLIC ACID TABLET (FP) PO SCH (09:36)
[2022-09-28] MEDS: NAPROXEN 500 MG TABLET PO PRN (09:38)
[2022-09-28] MEDS ORDERED: TRIMETHOBENZAMIDE HCL 200MG/2ML INJ IM PRN (12:42)
[2022-09-28] MEDS: BACLOFEN 10 MG TABLET (FP) PO SCH ×2 (13:25→21:39)
[2022-09-28] MEDS: THIAMINE HCL 100 MG TABLET (FP) PO SCH (21:39)
[2022-09-28] MEDS: MELATONIN 5 MG TABLETS PO SCH (21:39)
[2022-09-29] MEDS: BACLOFEN 10 MG TABLET (FP) PO SCH ×2 (06:17→14:05)
[2022-09-29] MEDS: ACETAMINOPHEN 325 MG TABLET (FP) PO PRN (06:18)
[2022-09-29] MEDS: PANTOPRAZOLE 40 MG TABLET PO SCH (09:40)
[2022-09-29] MEDS: NAPROXEN 500 MG TABLET PO PRN ×2 (09:40→21:27)
[2022-09-29] MEDS: amLODIPine BESYLATE 5 MG TABLET (FP) PO SCH (09:40)
[2022-09-29] MEDS: PRENATAL VITAMINS W/ FOLIC ACID TABLET (FP) PO SCH (09:40)
[2022-09-29] MEDS: MELATONIN 5 MG TABLETS PO SCH (21:25)
[2022-09-29] MEDS: THIAMINE HCL 100 MG TABLET (FP) PO SCH (21:25)
[2022-09-30] MEDS: ACETAMINOPHEN 325 MG TABLET (FP) PO PRN ×2 (06:32→14:17)
[2022-09-30] MEDS: BACLOFEN 10 MG TABLET (FP) PO PRN (06:32)
[2022-09-30] MEDS: PRENATAL VITAMINS W/ FOLIC ACID TABLET (FP) PO SCH (10:05)
[2022-09-30] MEDS: amLODIPine BESYLATE 5 MG TABLET (FP) PO SCH (10:05)
[2022-09-30] MEDS: PANTOPRAZOLE 40 MG TABLET PO SCH (10:05)
[2022-09-30] MEDS: NAPROXEN 500 MG TABLET PO PRN ×2 (10:06→21:45)
[2022-09-30] MEDS: MELATONIN 5 MG TABLETS PO SCH (21:45)
[2022-09-30] MEDS: THIAMINE HCL 100 MG TABLET (FP) PO SCH (21:45)
[2022-10-01] MEDS: BACLOFEN 10 MG TABLET (FP) PO PRN ×2 (06:26→21:20)
[2022-10-01] MEDS: ACETAMINOPHEN 325 MG TABLET (FP) PO PRN ×2 (06:26→17:17)
[2022-10-01] MEDS: PANTOPRAZOLE 40 MG TABLET PO SCH (09:44)
[2022-10-01] MEDS: amLODIPine BESYLATE 5 MG TABLET (FP) PO SCH (09:44)
[2022-10-01] MEDS: PRENATAL VITAMINS W/ FOLIC ACID TABLET (FP) PO SCH (09:44)
[2022-10-01] MEDS: NAPROXEN 500 MG TABLET PO PRN ×2 (11:27→21:20)
[2022-10-01] MEDS: MELATONIN 5 MG TABLETS PO SCH (21:20)
[2022-10-01] MEDS: THIAMINE HCL 100 MG TABLET (FP) PO SCH (21:20)
[2022-10-02] MEDS: BACLOFEN 10 MG TABLET (FP) PO PRN (06:26)
[2022-10-02] MEDS: ACETAMINOPHEN 325 MG TABLET (FP) PO PRN (06:26)
[2022-10-02 06:45] VITALS: RESP 16; TEMP 97.8
[2022-10-02] MEDS: amLODIPine BESYLATE 5 MG TABLET (FP) PO SCH (09:34)
[2022-10-02] MEDS: PRENATAL VITAMINS W/ FOLIC ACID TABLET (FP) PO SCH (09:34)
[2022-10-02] MEDS: PANTOPRAZOLE 40 MG TABLET PO SCH (09:34)
[2022-10-02] MEDS: NAPROXEN 500 MG TABLET PO PRN (09:35)
[2022-10-02 10:48] VITALS: BP 103/63; PULSE 71
== END 2022-10-02 19:15 | disposition home or self-care (01) | DRG 895 ==
LOC: YASAS 11:26 → Y3E 13:45
PROVIDERS: ADMIT Allergy & Immunology; ATTEND Psychiatry & Neurology Pain Medicine
PROC: HZ42ZZZ Group Counseling for Substance Abuse Treatment, Cognitive-Behavioral (ICD-10-PCS; principal; 2022-09-27)
DX: F14.20 Cocaine dependence, uncomplicated (principal); F10.10 Alcohol abuse, uncomplicated; F17.210 Nicotine dependence, cigarettes, uncomplicated; F41.9 Anxiety disorder, unspecified; G47.00 Insomnia, unspecified; K21.9 Gastro-esophageal reflux disease without esophagitis; M15.9 Polyosteoarthritis, unspecified; R11.2 Nausea with vomiting, unspecified; Z99.89 Dependence on other enabling machines and devices
CPT/HCPCS: 36415; 80053; 85027; 86780; 86803; 87635; J0475

== ENCOUNTER 2023-02-21 10:04 | Inpatient (IN) | payer OTHER ==
[2023-02-21 10:30] VITALS: BMI 17.0
[2023-02-21] MEDS ORDERED: cloNIDine HCL 0.1 MG TABLET ONE (11:31)
[2023-02-21] MEDS ORDERED: ACETAMINOPHEN 325 MG TABLET (FP) ONE (11:32)
[2023-02-21] MEDS ORDERED: cloNIDine HCL 0.1 MG TABLET PO ONE (11:45)
[2023-02-21] MEDS ORDERED: BENZONATATE 200 MG CAPSULE PO PRN (13:10)
[2023-02-21] MEDS ORDERED: POLYETHYLENE GLYCOL (HEALTHYLAX) 3350 17 GM PACKET PO PRN (13:10)
[2023-02-21] MEDS ORDERED: guaiFENesin 600 MG TABLET.ER (FP) PO PRN (13:10)
[2023-02-21] MEDS ORDERED: IBUPROFEN 400 MG TABLET (FP) PO PRN (13:10)
[2023-02-21] MEDS ORDERED: IBUPROFEN 600 MG TABLET (FP) PO PRN (13:10)
[2023-02-21] MEDS ORDERED: COLLOIDAL OATMEAL 1 BAR EACH TP PRN (13:10)
[2023-02-21] MEDS ORDERED: BENZOCAINE/MENTHOL (CHLORASEPTIC ) LOZENGE MM PRN (13:10)
[2023-02-21] MEDS ORDERED: MAG HYDROX/AL HYDROX/SIMETH 30 ML UNIT-DOSE CUP PO PRN (13:10)
[2023-02-21] MEDS ORDERED: LOPERAMIDE HCL 2 MG CAPSULE PO PRN (13:10)
[2023-02-21] MEDS ORDERED: NALOXONE HCL 0.4 MG/ML VIAL IM PRN (13:10)
[2023-02-21] MEDS ORDERED: NALOXONE HCL (KLOXXADO) 8 MG SPRAY NS PRN (13:10)
[2023-02-21] MEDS ORDERED: MAGNESIUM HYDROX 2400MG/30ML ORAL SUSPENSION 30 ML CUP PO PRN (13:10)
[2023-02-21] MEDS: PANTOPRAZOLE 40 MG TABLET PO SCH (16:36)
[2023-02-21] MEDS ORDERED: TUBERCULIN PPD 5 TU/0.1ML VIAL ID ONE (18:24)
[2023-02-21] MEDS: MELATONIN 5 MG TABLETS PO SCH (21:57)
[2023-02-21] MEDS: NAPROXEN 500 MG TABLET PO SCH (21:57)
[2023-02-21] MEDS: THIAMINE HCL 100 MG TABLET (FP) PO SCH (21:57)
[2023-02-21] MEDS: METHOCARBAMOL 500 MG TABLET PO SCH (21:57)
[2023-02-22] MEDS: ACETAMINOPHEN 325 MG TABLET (FP) PO PRN (06:20)
[2023-02-22] MEDS: NAPROXEN 500 MG TABLET PO SCH ×2 (09:14→21:13)
[2023-02-22] MEDS: PRENATAL VITAMINS W/ FOLIC ACID TABLET (FP) PO SCH (09:14)
[2023-02-22] MEDS: PANTOPRAZOLE 40 MG TABLET PO SCH (09:14)
[2023-02-22] MEDS: METHOCARBAMOL 500 MG TABLET PO SCH ×2 (09:15→21:13)
[2023-02-22 11:15] LABS: HEMATOCRIT 39.1 % (35.4-49); HEMOGLOBIN 12.4 GM/dL (11.7-16.9); MCH 27.3 pg (25.7-33.7); MCHC 31.7 g/dl (32.0-35.9); MEAN CELL VOLUME 86.3 fl (80-96); MEAN PLT VOLUME 7.2 fl (7.5-11.1); PLATELET COUNT 402 10^3/uL (134-434); RBC 4.53 M/mm3 (4.00-5.60); RDW 16.4 % (11.9-15.9); WHITE BLOOD COUNT 10.2 K/mm3 (4.0-10.0)
[2023-02-22] MEDS ORDERED: FLU VACCINE (FLULAVAL) PF 60 MCG/0.5 ML SYRINGE 2023-2024 IM ONE (12:00)
[2023-02-22] MEDS ORDERED: PNEUMOC 20-VAL CONJ-DIP CRM/PF 0.5 ML SYRINGE IM ONE (12:00)
[2023-02-22 12:25] LABS: POTASSIUM 4.1 mmol/L (3.5-5.1)
[2023-02-22 12:27] LABS: BLOOD UREA NITROGEN 20.6 mg/dL (7-18); CALCIUM 8.4 mg/dL (8.5-10.1)
[2023-02-22 12:28] LABS: ALBUMIN 2.9 g/dl (3.4-5.0)
[2023-02-22 12:30] LABS: CREATININE 0.8 mg/dL (0.55-1.3)
[2023-02-22 12:32] LABS: BILIRUBIN,TOTAL 0.4 mg/dL (0.2-1); TOT PROT 5.9 g/dl (6.4-8.2)
[2023-02-22 15:42] LABS: EPI CELLS 9 /uL (0-25.1); HYALINE CASTS 3 /uL (0-3.1); PH,URINE 5.5 (5.0-8.0); URINE APPEARANCE CLEAR; URINE BACTERIA 1 /uL (0-1359); URINE BILIRUBIN NEGATIVE (NEGATIVE); URINE COLOR YELLOW; URINE GLUCOSE (UA) NEGATIVE (NEGATIVE); URINE KETONE TRACE (NEGATIVE); URINE LEUK ESTERASE NEGATIVE (NEGATIVE); URINE NITRITE NEGATIVE (NEGATIVE); URINE PROTEIN 1+ (NEGATIVE); URINE RBC 18 /uL (0-23.9); URINE UROBILINOGEN 0.2 mg/dL (0.2-1.0); URINE WBC 4 /uL (0-25.8)
[2023-02-22] MEDS: THIAMINE HCL 100 MG TABLET (FP) PO SCH (21:13)
[2023-02-22] MEDS: MELATONIN 5 MG TABLETS PO SCH (21:13)
[2023-02-23] MEDS: ACETAMINOPHEN 325 MG TABLET (FP) PO PRN (06:25)
[2023-02-23] MEDS: NAPROXEN 500 MG TABLET PO SCH ×2 (10:16→21:11)
[2023-02-23] MEDS: PANTOPRAZOLE 40 MG TABLET PO SCH (10:16)
[2023-02-23] MEDS: PRENATAL VITAMINS W/ FOLIC ACID TABLET (FP) PO SCH (10:16)
[2023-02-23] MEDS: METHOCARBAMOL 500 MG TABLET PO SCH ×2 (10:16→21:11)
[2023-02-23] MEDS: THIAMINE HCL 100 MG TABLET (FP) PO SCH (21:11)
[2023-02-23] MEDS: MELATONIN 5 MG TABLETS PO SCH (23:24)
[2023-02-24 09:29] VITALS: BP 126/76; PULSE 66; RESP 17; TEMP 98.9
[2023-02-24] MEDS: NAPROXEN 500 MG TABLET PO SCH (09:53)
[2023-02-24] MEDS: METHOCARBAMOL 500 MG TABLET PO SCH (09:53)
[2023-02-24] MEDS: PRENATAL VITAMINS W/ FOLIC ACID TABLET (FP) PO SCH (09:53)
[2023-02-24] MEDS: PANTOPRAZOLE 40 MG TABLET PO SCH (09:53)
== END 2023-02-24 15:26 | disposition left against medical advice (07) | DRG 894 ==
LOC: YASAS 10:04 → Y3E 14:59
PROVIDERS: ADMIT Allergy & Immunology; ATTEND Psychiatry & Neurology Pain Medicine
PROC: HZ42ZZZ Group Counseling for Substance Abuse Treatment, Cognitive-Behavioral (ICD-10-PCS; principal; 2023-02-21)
DX: F14.20 Cocaine dependence, uncomplicated (principal); F19.282 Other psychoactive substance dependence with psychoactive substance-induced sleep disorder; F17.210 Nicotine dependence, cigarettes, uncomplicated; G47.00 Insomnia, unspecified; I10 Essential (primary) hypertension; K21.9 Gastro-esophageal reflux disease without esophagitis; M15.9 Polyosteoarthritis, unspecified; R26.89 Other abnormalities of gait and mobility; Z91.81 History of falling; Z99.89 Dependence on other enabling machines and devices
CPT/HCPCS: 36415; 80053; 80307; 81003; 82962; 85027; 86780; 87635; 87811; 90677; 90686; G0008

== ENCOUNTER 2023-02-24 10:31 | Emergency (ER) | payer OTHER ==
[2023-02-24 10:53] VITALS: BP 107/66; PULSE 67; RESP 18; TEMP 98.3; BMI 16.5
== END 2023-02-24 12:08 | disposition home or self-care (01) ==
LOC: JER 10:31
DX: Z04.3 Encounter for examination and observation following other accident (principal)
CPT/HCPCS: 99283-25

== ENCOUNTER 2023-06-26 11:12 | Inpatient (IN) | payer OTHER ==
[2023-06-26 11:46] VITALS: BMI 17.4
[2023-06-26] MEDS ORDERED: BENZONATATE 200 MG CAPSULE PO PRN (12:34)
[2023-06-26] MEDS ORDERED: NICOTINE POLACRILEX 2 MG GUM BUC PRN (12:34)
[2023-06-26] MEDS ORDERED: BENZOCAINE/MENTHOL (CHLORASEPTIC ) LOZENGE MM PRN (12:34)
[2023-06-26] MEDS ORDERED: POLYETHYLENE GLYCOL (HEALTHYLAX) 3350 17 GM PACKET PO PRN (12:34)
[2023-06-26] MEDS ORDERED: NALOXONE HCL (KLOXXADO) 8 MG SPRAY NS PRN (12:34)
[2023-06-26] MEDS ORDERED: guaiFENesin 600 MG TABLET.ER (FP) PO PRN (12:34)
[2023-06-26] MEDS ORDERED: NALOXONE HCL 0.4 MG/ML VIAL IM PRN (12:34)
[2023-06-26] MEDS ORDERED: hydrOXYzine PAMOATE 25 MG CAPSULE (FP) PO PRN (12:34)
[2023-06-26] MEDS ORDERED: MAGNESIUM HYDROX 2400MG/30ML ORAL SUSPENSION 30 ML CUP PO PRN (12:34)
[2023-06-26] MEDS ORDERED: LOPERAMIDE HCL 2 MG CAPSULE PO PRN (12:34)
[2023-06-26] MEDS ORDERED: IBUPROFEN 600 MG TABLET (FP) PO PRN (12:34)
[2023-06-26] MEDS ORDERED: IBUPROFEN 400 MG TABLET (FP) PO PRN (12:34)
[2023-06-26] MEDS ORDERED: PRENATAL VITAMINS W/ FOLIC ACID TABLET (FP) PO ONE (14:51)
[2023-06-26] MEDS: PANTOPRAZOLE 40 MG TABLET PO SCH (14:54)
[2023-06-26] MEDS: PRENATAL VITAMINS W/ FOLIC ACID TABLET (FP) PO SCH (14:54)
[2023-06-26] MEDS: NAPROXEN 500 MG TABLET PO SCH (21:20)
[2023-06-26] MEDS: THIAMINE HCL 100 MG TABLET (FP) PO SCH (21:20)
[2023-06-26] MEDS: MELATONIN 5 MG TABLETS PO SCH (21:20)
[2023-06-26] MEDS: MAG HYDROX/AL HYDROX/SIMETH 30 ML UNIT-DOSE CUP PO PRN (22:54)
[2023-06-26 23:58] LABS: PH,URINE 8.5 (5.0-8.0); URINE APPEARANCE Error; URINE BILIRUBIN NEGATIVE (NEGATIVE); URINE COLOR YELLOW; URINE GLUCOSE (UA) NEGATIVE (NEGATIVE); URINE KETONE NEGATIVE (NEGATIVE); URINE LEUK ESTERASE NEGATIVE (NEGATIVE); URINE NITRITE NEGATIVE (NEGATIVE); URINE PROTEIN TRACE (NEGATIVE)
[2023-06-27] MEDS: ACETAMINOPHEN 325 MG TABLET (FP) PO PRN (06:20)
[2023-06-27 12:17] LABS: POTASSIUM 4.1 mmol/L (3.5-5.1)
[2023-06-27 12:18] LABS: HEMATOCRIT 40.5 % (35.4-49); HEMOGLOBIN 12.9 GM/dL (11.7-16.9); MCH 27.4 pg (25.7-33.7); MCHC 31.9 g/dl (32.0-35.9); MEAN CELL VOLUME 85.8 fl (80-96); MEAN PLT VOLUME 7.9 fl (7.5-11.1); PLATELET COUNT 354 10^3/uL (134-434); RBC 4.72 M/mm3 (4.00-5.60); RDW 16.1 % (11.9-15.9); WHITE BLOOD COUNT 9.4 K/mm3 (4.0-10.0)
[2023-06-27 12:24] LABS: CALCIUM 8.3 mg/dL (8.5-10.1)
[2023-06-27 12:27] LABS: CREATININE 0.9 mg/dL (0.55-1.3)
[2023-06-27 12:29] LABS: BILIRUBIN,TOTAL 0.5 mg/dL (0.2-1)
[2023-06-27 12:43] LABS: SYPHILIS W/ RPR CONF NON-REACTIVE (NONREACTIVE)
[2023-06-29 06:30] VITALS: PULSE 70; RESP 16; TEMP 97.6
[2023-06-29 09:13] VITALS: BP 125/69
[2023-06-29] MEDS ORDERED: MIRTAZAPINE 15 MG TABLET (FP) PO SCH (22:00)
== END 2023-06-29 14:24 | disposition left against medical advice (07) | DRG 894 ==
LOC: YASAS 11:12 → Y3W 15:50 → Y3E 16:23
PROVIDERS: ADMIT Allergy & Immunology; ATTEND Psychiatry & Neurology Pain Medicine
PROC: HZ42ZZZ Group Counseling for Substance Abuse Treatment, Cognitive-Behavioral (ICD-10-PCS; principal; 2023-06-26)
DX: F10.20 Alcohol dependence, uncomplicated (principal); F14.20 Cocaine dependence, uncomplicated; F17.210 Nicotine dependence, cigarettes, uncomplicated; F19.24 Other psychoactive substance dependence with psychoactive substance-induced mood disorder; F41.9 Anxiety disorder, unspecified; F32.A Depression, unspecified; I10 Essential (primary) hypertension; K21.9 Gastro-esophageal reflux disease without esophagitis; M15.9 Polyosteoarthritis, unspecified; F91.8 Other conduct disorders; Z91.199 Patient's noncompliance with other medical treatment and regimen due to unspecified reason; Z99.89 Dependence on other enabling machines and devices
CPT/HCPCS: 36415; 80053; 80305; 81003; 83036; 85027; 86780; 86803; 87635; 87811